=== PATIENT | male | born 1960 | race Caucasian/White ===

== ENCOUNTER 2018-04-13 23:29 | Emergency (ER) | payer BC ==
[~2018-04-13] VITALS: Ht 165.1 cm; Wt 79.9 kg
[2018-04-13 23:31] VITALS: Ht 165.1 cm; Wt 79.9 kg
[2018-04-14] MEDS ORDERED: IBUP-1542 PO (05:18)
[2018-04-14 05:25] VITALS: BP 160/83; PULSE 55; RESP 18
--- NOTE | 2018-04-14 07:09 | ERD ---
ER Documentation Chief Complaint Chief Complaint SUBUNGALHEMATOMA OF LEFT 4TH FINGER; SLAMMED BY CAR DOOR X2DAYS HPI 57-year-old male presents for left fourth finger pain times 2 days. he states that he slam his finger on the car door while closing it and subsequently developed pain. There is some discoloration underneath the nail. He notes the pain is 5 out of 10. No other complaints. ROS All systems reviewed and are negative except as per history of present illness. Medications Home Meds Active Scripts Ibuprofen* (Motrin*) 600 Mg Tab, 600 MG PO Q6H PRN for PAIN AND OR ELEVATED TEMP, #30 TAB Prov:LENA GODWIN DO 04/14/18 PMhx/Soc History of Surgery: No Anesthesia Reaction: No Hx Neurological Disorder: No Hx Respiratory Disorders: No Hx Cardiac Disorders: No Hx Psychiatric Problems: No Hx Miscellaneous Medical Probl: No Hx Alcohol Use: No Hx Substance Use: No Hx Tobacco Use: No Smoking Status: Never smoker Physical Exam Vitals Vital Signs Date Temp Pulse Resp B/P (MAP) Pulse Ox O2 O2 Flow FiO2 Time Delivery Rate 04/14/18 97.7 55 18 160/83 98 Room Air 05:25 (108) 04/13/18 97.0 60 18 161/76 98 23:31 (104) Physical Exam Const: No acute distress Resp: Clear to auscultation bilaterally Cardio: Regular rate and rhythm, no murmurs, cap refills less than 2 seconds on all fingers of the left hand Abd: Soft, non tender, non distended. Normal bowel sounds Skin: No petechiae or rashes Back: No midline or flank tenderness Ext: Left hand fourth fingernail subungual hematoma noted, patient is able to move his left fourth finger Neur: Awake and alert, left fourth finger sensation intact Psych: Normal Mood and Affect Procedures/MDM Procedure note Trephination of the left fourth fingernail Cautery was used to drill a hole into the left fourth fingernail There was return of blood. Patient had relief of pain after the procedure Medical Decision Making: Differential diagnosis includes but not limited to subungual hematoma, fracture, dislocation Patient appeared well on physical exam. Left hand fourth finger examination consistent with a subungual hematoma Left fourth finger x-ray unremarkable Trephination procedure done, see procedure note. Patient given prescription for Motrin. Patient advised to follow up with PCP in 1-2 days. Patient advised to return to ED for new or worsening symptoms. Patient stable on discharge from the ED. Disclaimer: Inadvertent spelling and grammatical errors are likely due to EHR/dictation software use and do not reflect on the overall quality of patient care. Also, please note that the electronic time recorded on this note does not necessarily reflect the actual time of the patient encounter. Departure Diagnosis: Primary Impression: Subungual hematoma Condition: Fair Patient Instructions: Subungual Hematoma Additional Instructions: Call your primary care doctor TOMORROW for an appointment during the next 1-2 days.See the doctor sooner or return here if your condition worsens before your appointment time. LENA GODWIN DO Apr 14, 2018 07:09
== END 2018-04-14 05:27 | disposition home or self-care (01) ==
LOC: FTE 23:29
DX: S60.142A Contusion of left ring finger with damage to nail, initial encounter (principal); W23.0XXA Caught, crushed, jammed, or pinched between moving objects, initial encounter; Y92.9 Unspecified place or not applicable
CPT/HCPCS: 73140; Z7502